=== PATIENT | female | born 1975 | race Caucasian/White ===

== ENCOUNTER 2018-04-26 09:27 | Outpatient (CLI) | payer BC, SELFPAY ==
[2018-04-26] MEDS: Bupivacaine 0.5% Pres-Free 30 ML VIAL IJ (14:09)
[2018-04-26] MEDS: Omnipaque 300 MG/ML 10 ML BTL IJ (14:10)
[2018-04-26] MEDS: methylPREDNISolone ACETATE 80 MG/ML VIAL IM (14:10)
--- NOTE | 2018-04-26 14:11 | DI.RAD_ITS ---
SYMPTOMS/DIAGNOSIS: PARTIAL ARTICULAR ROTATOR CUFF TEAR RT, M75.101 RIGHT SHOULDER INJECTION: Fluoroscopy Time: 13.6 sec A frontal image of the shoulder obtained with the C-arm reveals a needle positioned over the shoulder joint in connection with a joint injection. Please see Dr. Denise's procedure report for further information.
== END 2018-04-26 09:47 ==
PROVIDERS: PCP Nurse Practitioner Family; Visit Provider Student in an Organized Health Care Education/Training Program
DX: M75.101 Unspecified rotator cuff tear or rupture of right shoulder, not specified as traumatic (principal)
CPT/HCPCS: 20610; 77002; J1040

== ENCOUNTER 2018-07-01 09:15 | Outpatient (CLI) | payer BC, SELFPAY ==
[2018-07-01 10:39] LABS: Anion Gap 8.2 mmol/L (3-11); BUN 12 mg/dL (7-18); CO2 27.8 mmol/L (21.0-32.0); CREATININE 0.84 mg/dL (0.55-1.02); Calcium 8.8 mg/dL (8.5-10.1); Chloride 106 mmol/L (98-107); FREE T4 0.85 ng/dL (0.76-1.46); Glucose 89 mg/dL (70-100); Potassium 4.5 mmol/L (3.5-5.1); Sodium 142 mmol/L (136-145); TSH 4.78 uIU/mL (0.358-3.74)
[2018-07-02 09:13] LABS: Vitamin D 25 Total 25.9 ng/ml (30-100)
== END 2018-07-01 09:35 ==
PROVIDERS: PCP Nurse Practitioner Family; Visit Provider Nurse Practitioner Family
DX: G47.33 Obstructive sleep apnea (adult) (pediatric) (principal); M54.5 Low back pain; E55.9 Vitamin D deficiency, unspecified
CPT/HCPCS: 36415; 80048; 82306; 84439; 84443

== ENCOUNTER 2018-09-07 00:48 | Outpatient (CLI) | payer BC, SELFPAY ==
--- NOTE | 2018-09-07 16:15 | DI.MAMMO_ITS ---
SYMPTOM/DIAGNOSIS: SCREENING, Z12.31, BASELINE MAMMOGRAMS: Mammograms were interpreted according to the usual protocol including computer analysis with CAD system, tomosynthesis and C view imaging. There are no priors for comparison. Breast density, category A. No suspicious masses or microcalcifications are seen. There is a notched, well circumscribed nodule in the upper outer quadrant of the right breast, most consistent with an intraparenchymal lymph node. The skin and axilla are unremarkable. IMPRESSION: No evidence for malignancy. Yearly mammography is recommended. Category 1. MQSA ASSESSMENT OF FINDINGS: Negative. Category 1. Patient will receive a letter notifying them of these results. BI-RAD category A. The breasts are almost entirely fatty.
== END 2018-09-07 01:08 ==
PROVIDERS: PCP Nurse Practitioner Family; Visit Provider Nurse Practitioner Family
DX: Z12.31 Encounter for screening mammogram for malignant neoplasm of breast (principal)
CPT/HCPCS: 77063; 77067

== ENCOUNTER 2018-09-14 07:14 | Outpatient (CLI) | payer BC, SELFPAY ==
[2018-09-14 08:05] LABS: Abs Immature Grans 0.01 k/cumm (0.0-0.09); Absolute Basophil Count 0.03 k/cumm (0.0-0.2); Absolute Eosinophil Count 0.15 k/cumm (0.0-0.7); Absolute Lymphocyte Count 1.51 k/cumm (1.2-3.4); Absolute Monocyte Count 0.63 k/cumm (0.11-0.7); Absolute Neutrophil Count 4.39 k/cumm (1.2-6.7); Basophils % 0.4; Eosinophils % 2.2; HCT 37.6 % (36.0-46.0); HGB 11.8 g/dL (12.0-15.5); Immature Grans % 0.1; Lymphocytes % 22.5; Mean Corp. HGB Concentration 31.4 g/dL (32.0-36.0); Mean Corpuscular Hemoglobin 30.4 pg (27.0-33.0); Mean Corpuscular Volume 96.9 fL (80-95); Mean Platelet Volume 11.6 fL (8.0-11.0); Monocytes % 9.4; Neutrophils % 65.4; Platelet Count 302 x1000/uL (130-400); RBC 3.88 m/cumm (4.00-5.20); RBC Distribution Width 13.6 % (11.7-14.6); White Blood Cell Count 6.72 k/cumm (4.4-10.8)
[2018-09-14 09:15] LABS: Cholesterol 226 mg/dL (50-200); HDL Cholesterol 49 mg/dL (40-60); LDL CHOLESTEROL 146 mg/dL (<100); TSH 4.59 uIU/mL (0.358-3.74); Triglyceride 130 mg/dL (30-150)
[2018-09-17 06:00] LABS: Vitamin D 25 Total 25.4 ng/ml (30-100)
== END 2018-09-14 07:34 ==
PROVIDERS: PCP Nurse Practitioner Family; Visit Provider Nurse Practitioner Family
DX: E55.9 Vitamin D deficiency, unspecified (principal); E78.5 Hyperlipidemia, unspecified; G47.33 Obstructive sleep apnea (adult) (pediatric); R79.89 Other specified abnormal findings of blood chemistry
CPT/HCPCS: 36415; 80061; 82306; 83721; 84439; 84443; 85025

== ENCOUNTER → 2018-10-09 03:02 | Outpatient (CLI) | payer BC, SELFPAY ==
--- NOTE | 2018-10-15 12:20 | HOLTER_ITS ---
DATE OF DICTATION: October 15, 2018 HOLTER MONITOR REPORT 48-HOUR STUDY Baseline rhythm sinus. Rare single PAC. Two bursts of SVT, longest 14-beat duration, fastest 163 bpm. Very frequent single PVC, 8025 total, 3.9% of total beat. Nocturnal heart rates as low as 45-50 bpm, sinus bradycardia. SYMPTOMS: Palpitations noted twice during sinus rhythm 84, 86 bpm. Palpitations noted once during sinus rhythm single PVC 71 bpm. Average heart rate 70 bpm.
== END ==
PROVIDERS: PCP Nurse Practitioner Family; Visit Provider Nurse Practitioner Family
DX: R00.2 Palpitations (principal); R00.1 Bradycardia, unspecified; I49.3 Ventricular premature depolarization; I47.1 Supraventricular tachycardia
CPT/HCPCS: 93225

== ENCOUNTER → 2018-10-10 02:09 | Outpatient (CLI) | payer BC, SELFPAY ==
--- NOTE | 2018-10-10 16:00 | SATEXT_ITS ---
Assessment: Ms. Velazquez presents for nutritional counseling for weight management nutrition therapy in preparation for bariatric surgery at [facility]. She describes a long history of trying various weight loss programs and losing weight and gaining it back. She verbalizes a high motivation to make a lifestyle commitment to the bariatric program. She is 71 and 368.6 lbs. Her dietary recall shows that she wakes up at 5 am and has coffee with creamer. She has left overs from the night before at 9 am. She has cheese and crackers at 12 pm and then for dinner she has a typical dinner of protein, vegetable and starch. She reports that she drinks water but not enough. She drinks mostly diet soda if she has soda. She prefers vegetables over fruits. She reports that she has cut her intake of sweets down to three times per week. Her physical activity at this time consists of her activities of daily life. She works 60 hours per week. Nutritional Diagnosis: Class 3 obesity related to a history of excess energy intake and physical inactivity as evidenced by a BMI of 52.3 kg/m2. Intervention: We discussed the importance of making some action plans towards her overarching goal of losing weight and being a part of the bariatric program. At this visit, Ms. Velazquez made action plans around increasing her fruit intake and increasing her water intake. Provided written materials with some suggestions and tips. Monitoring and Evaluation: 1. Will monitor her weight and PO intake monthly as well as her progress on her action plans. 2. Will evaluate her nutrition care plan each month and adjust as needed. Thank you for the referral. Total time spent face to face: 43 minutes
--- NOTE | 2018-10-11 13:04 | W.NUTCONSULT ---
Date of service: 10/11/18 Time of Service: 13:04
== END ==
PROVIDERS: PCP Nurse Practitioner Family; Visit Provider Dietitian, Registered
DX: E66.8 Other obesity (principal); Z68.43 Body mass index [BMI] 50.0-59.9, adult; Z71.3 Dietary counseling and surveillance
CPT/HCPCS: 97802

== ENCOUNTER → 2018-10-11 16:57 | Outpatient (CLI) | payer BC, SELFPAY | PROVIDERS: PCP Nurse Practitioner Family; Visit Provider Nurse Practitioner Family | DX: R00.2 Palpitations (principal); I49.3 Ventricular premature depolarization; I47.1 Supraventricular tachycardia; R00.1 Bradycardia, unspecified | CPT/HCPCS: 93226 ==

== ENCOUNTER 2018-11-12 02:59 | Outpatient (CLI) | payer BC, SELFPAY ==
--- NOTE | 2018-11-12 16:30 | NS.NUTBLAN_ITS ---
Ms. Velazquez returns for follow up weight management nutrition therapy in preparation for bariatric surgery. She has increased her water intake. She has decreased her overall portion sizes and increased her fruit intake. Her physical activity has increased as well, as she is climbing ladders frequently working on her home. She continues to demonstrate a high motivation to commit to a lifestyle of weight management. Her dietary recall shows that she has yogurt or oatmeal for breakfast. She has a salad for lunch. She snacks on a fruit and for dinner she eats vegetable and a protein. She is reducing her beef intake. Her action plan is to continue with the same as she has been doing and to increase her water intake to 12 ounces every waking hour as possible. She will also weigh and measure her foods until she gets a good idea of exact portions. She is 71 and 367.2 lbs. Her BMI is 52 kg/m2. Will monitor her PO intake, weight, and physical activity each month. Will evaluate her nutrition care plan ongoing and adjust as needed. Total time spent with patient face to face was 20 minutes.
== END 2018-11-12 03:19 ==
PROVIDERS: PCP Nurse Practitioner Family; Visit Provider Dietitian, Registered
DX: E66.9 Obesity, unspecified (principal); Z68.43 Body mass index [BMI] 50.0-59.9, adult; Z71.3 Dietary counseling and surveillance
CPT/HCPCS: 97803

== ENCOUNTER 2018-12-12 08:24 | Outpatient (CLI) | payer BC, SELFPAY ==
--- NOTE | 2018-12-24 19:03 | W.NUTRFU ---
Date of service: 12/12/18 Time of Service: 16:00 Nutritional Follow up NOTE: Ms. Velazquez returns for follow up weight management nutrition therapy in preparation for bariatric surgery. She continues to demonstrate a high motivation to adopt a lifestyle of weight management and complete all the compononents of the program. She stopped drinking coffee and soda and she has increased her water intake. Her physical activity has increased with increased work on her new home. She plans to walk for 20 to 30 minutes daily now too. She is 71 Her weight is 373 lbs. Her BMI is 53.5 kg/m2 Will monitor her PO intake, her weight, and her physical activity each month. Will evaluate her nutrition care plan ongoing and adjust as needed. Time Spent in Nutritional Counseling and Treatment: 15 minutes
== END 2018-12-12 08:44 ==
PROVIDERS: PCP Nurse Practitioner Family; Visit Provider Dietitian, Registered
DX: E66.8 Other obesity (principal); Z68.43 Body mass index [BMI] 50.0-59.9, adult; Z71.3 Dietary counseling and surveillance
CPT/HCPCS: 97803

== ENCOUNTER 2019-02-01 08:28 | Outpatient (CLI) | payer BC, SELFPAY ==
--- NOTE | 2019-02-01 09:05 | MERGE_ITS ---
*[facility]* *[facility]* [address] [place] [address] Date of study: 02/01/2019 Transthoracic Echocardiography M-mode, complete 2D, complete spectral Doppler, and color Doppler *STUDY CONCLUSIONS* Summary: 1. Left ventricle: The cavity size was at the upper limits of normal. Wall thickness was increased in a pattern of mild LVH. Systolic function was normal. The estimated ejection fraction was 55-60%. Wall motion was normal; there were no regional wall motion abnormalities. 2. Right ventricle: The cavity size was normal. Systolic function was normal. 3. Mitral valve: Mildly calcified annulus. Mildly thickened leaflets. There was mild regurgitation. 4. Aortic valve: Bicuspid (fusion of left and right coronary cusps); mildly thickened leaflets. There was mild regurgitation. 5. Aortic root: The aortic root was mildly dilated (39 mm). 6. Ascending aorta: The ascending aorta was mildly dilated (42 mm). 7. Inferior vena cava: The vessel was patent and normal in size. The respirophasic diameter changes were in the normal range (greater than or equal to 50%), consistent with normal central venous pressure. *PATIENT PRESENTATION* Height: 177.8cm (70in ) S/D Pressure: 102 / 61 Weight: 165.6kg (364.2lb ) BSA: 2.95m^2 Test start time: 09:15 AM. Test stop time: 10:15 AM. PERFORMING Unknown PERFORMING [facility] ETL ARCHITECT RT Rose Mary Ricketts)(CT), [facility] ORDERING Corrine España REFERRING Adjovu, Corrine *PROCEDURE DATA* Procedure information: The patient was identified by two identifiers. This study was interpreted by [facility]. Pertinent images and digital data are archived for permanent storage and are available for subsequent review. No prior study was available for comparison. Study status: Routine. Transthoracic echocardiography. M-mode, complete 2D, complete spectral Doppler, and color Doppler. A Transthoracic Echocardiogram was performed. Scanning was performed from the parasternal, apical, subcostal, and suprasternal notch acoustic windows. Images were obtained using an [id number] cardiac ultrasound machine. Image quality was adequate. Study completion: The patient tolerated the procedure well. There were no complications. *CARDIAC ANATOMY* Left ventricle: The cavity size was at the upper limits of normal. Wall thickness was increased in a pattern of mild LVH. Systolic function was normal. The estimated ejection fraction was 55-60%. Wall motion was normal; there were no regional wall motion abnormalities. Findings consistent with diastolic dysfunction. There was no evidence of elevated ventricular filling pressure by Doppler parameters. Aortic valve: Bicuspid (fusion of left and right coronary cusps); mildly thickened leaflets. Mobility was not restricted. Doppler: Transvalvular velocity was within the normal range. There was no stenosis. There was mild regurgitation. VTI ratio of LVOT to aortic valve: 0.5. Valve area (VTI): 2cm^2. Indexed valve area (VTI): 0.7cm^2/m^2. Peak velocity ratio of LVOT to aortic valve: 0.49. Valve area (Vmax): 2cm^2. Indexed valve area (Vmax): 0.7cm^2/m^2. Mean velocity ratio of LVOT to aortic valve: 0.54. Valve area (Vmean): 2.2cm^2. Indexed valve area (Vmean): 0.7cm^2/m^2. Mean gradient (S): 10.4mm Hg. Peak gradient (S): 18mm Hg. Aorta: Aortic root: The aortic root was mildly dilated (39 mm). Ascending aorta: The ascending aorta was mildly dilated (42 mm). Mitral valve: Mildly calcified annulus. Mildly thickened leaflets. Mobility was not restricted. Doppler: Transvalvular velocity was within the normal range. There was no evidence for stenosis. There was mild regurgitation. Valve area by pressure half-time: 3.8cm^2. Indexed valve area by pressure half-time: 1.3cm^2/m^2. Peak gradient (D): 5.5mm Hg. Left atrium: The atrium was at the upper limits of normal in size. Right ventricle: The cavity size was normal. Systolic function was normal. Pulmonic valve: The pulmonary valve appears to be grossly normal. Doppler: Transvalvular velocity was within the normal range. There was no evidence for stenosis. There was trivial regurgitation. Tricuspid valve: Structurally normal valve. Doppler: Transvalvular velocity was within the normal range. There was no evidence for stenosis. There was trivial regurgitation. Pulmonary artery: The main pulmonary artery was normal-sized. Pulmonary systolic pressure was within the normal range, in the range of 30mm Hg to 35mm Hg. Right atrium: The atrium was normal in size. Pericardium: There was no significant pericardial effusion. Systemic veins: Inferior vena cava: Well visualized. The vessel was patent and normal in size. The respirophasic diameter changes were in the normal range (greater than or equal to 50%), consistent with normal central venous pressure. Baseline ECG: Bradycardia. Measurements Left ventricle Value Reference LV ID, ED, PLAX 5.7 cm 3.5 - 6.0 LV ID, ES, PLAX 4.0 cm 2.1 - 4.0 LV PW thickness, ED, PLAX 1.3 cm LV end-diastolic volume, 1-p A2C 157 ml LV ejection fraction, 1-p A2C 59 % LV end-diastolic volume, 1-p A4C 144 ml LV ejection fraction, 1-p A4C 55 % LV e', lateral 0.096 m/sec LV E/e', lateral 12 LV e', medial 0.066 m/sec LV E/e', medial 18 LV e', average 0.081 m/sec LV E/e', average 15 Ventricular septum Value Reference IVS thickness, ED, PLAX 1.3 cm LVOT Value Reference LVOT ID, A-P 2.3 cm LVOT area 4 cm^2 LVOT peak velocity, S 1.03 m/sec LVOT mean velocity, S 0.84 m/sec LVOT VTI, S 26.8 cm LVOT peak gradient, S 4.3 mm Hg LVOT mean gradient, S 2.9 mm Hg Stroke volume (SV), LVOT DP 108 ml Stroke index (SV/bsa), LVOT DP 37 ml/m^2 Aortic valve Value Reference Aortic valve peak velocity, S 2.1 m/sec Aortic valve mean velocity, S 1.5 m/sec Aortic valve VTI, S 54.0 cm Aortic mean gradient, S 10.4 mm Hg Aortic peak gradient, S 18 mm Hg VTI ratio, LVOT/AV 0.5 Aortic valve area, VTI 2 cm^2 Velocity ratio, peak, LVOT/AV 0.49 Aortic valve area, peak velocity 2 cm^2 Velocity ratio, mean, LVOT/AV 0.54 Aortic valve area, mean velocity 2.2 cm^2 Aortic valve area/bsa, mean velocity 0.7 cm^2/m^2 Aorta Value Reference Aortic root ID, ED 3.9 cm Ascending aorta ID, A-P, S 4.2 cm RVOT Value Reference RVOT VTI, S 22.6 cm Left atrium Value Reference LA ID, A-P, ES 3.8 cm LA ID/bsa, A-P 1.3 cm/m^2 <=2.2 LA volume/bsa, ES, 1-p A4C 27 ml/m^2 LA volume, ES, 2-p 70 ml LA volume/bsa, ES, 2-p 24 ml/m^2 LA/aortic root ratio 0.98 Mitral valve Value Reference Mitral E-wave peak velocity 1.18 m/sec Mitral A-wave peak velocity 0.9 m/sec Mitral deceleration time 201 ms 150 - 230 Mitral pressure half-time 58 ms Mitral peak gradient, D 5.5 mm Hg Mitral E/A ratio, peak 1.31 Mitral valve area, PHT, DP 3.8 cm^2 Pulmonary veins Value Reference Pulmonary vein peak velocity, S 0.82 m/sec Pulmonary vein peak velocity, D 0.45 m/sec Pulmonary vein velocity ratio, peak, 1.81 S/D Pulmonary vein A-wave reversal peak 0.31 m/sec velocity Pulmonary vein A-wave reversal 141 ms duration Tricuspid valve Value Reference Tricuspid regurg peak velocity 2.8 m/sec Tricuspid peak RV-RA gradient 30.3 mm Hg Right atrium Value Reference RA area, ES, A4C 19.4 cm^2 8.3 - 19.5 Legend: (L) and (H) anahy values outside specified reference range. I have personally reviewed the images and have reviewed and edited the reported findings. Electronically signed by Anjel Lamar 02/01/2019 11:20
[2019-02-01 11:05] LABS: HCT 36.8 % (36.0-46.0); HGB 11.8 g/dL (12.0-15.5); Mean Corp. HGB Concentration 32.1 g/dL (32.0-36.0); Mean Corpuscular Hemoglobin 30.8 pg (27.0-33.0); Mean Corpuscular Volume 96.1 fL (80-95); Mean Platelet Volume 11.6 fL (8.0-11.0); Platelet Count 285 x1000/uL (130-400); RBC 3.83 m/cumm (4.00-5.20); RBC Distribution Width 13.8 % (11.7-14.6)
[2019-02-01 13:24] LABS: TSH 3.17 uIU/mL (0.358-3.74)
[2019-02-01 13:44] LABS: FREE T4 0.95 ng/dL (0.76-1.46)
[2019-02-04 07:12] LABS: Vitamin D 25 Total 23.9 ng/ml (30-100)
[2019-02-04 10:09] LABS: Rheumatoid Factor 12 IU/mL (<12.5)
[2019-02-04 11:13] LABS: Thyroglobulin Antibody 36 U/mL (<61); Thyroperoxidase Antibody 393 U/mL (<61)
[2019-02-04 12:13] LABS: Lyme Ab w Rflx to Lyme Confirm Negative
[2019-02-05 00:19] LABS: Anaplasma phagocytophilum Negative (Negative); B. miyamotoi PCR Negative (Negative); Babesia divergens/MO-1 Negative (Negative); Babesia duncani Negative (Negative); Babesia microti Negative (Negative); Ehrlichia chaffeensis Negative (Negative); Ehrlichia ewingii/canis Negative (Negative); Ehrlichia muris eauclairensis Negative (Negative)
== END 2019-02-01 08:48 ==
PROVIDERS: PCP Nurse Practitioner Family; Visit Provider Nurse Practitioner Family
DX: I49.3 Ventricular premature depolarization (principal); E03.9 Hypothyroidism, unspecified; E55.9 Vitamin D deficiency, unspecified; M25.50 Pain in unspecified joint; I34.0 Nonrheumatic mitral (valve) insufficiency; I35.8 Other nonrheumatic aortic valve disorders
CPT/HCPCS: 36415; 82306; 85027; 86376; 87798; 84439; 84443; 86431; 86618; 93306

== ENCOUNTER → 2019-08-21 07:04 | Outpatient (CLI) | payer OTHER, SELFPAY ==
[2019-08-21 08:21] LABS: Hemoglobin A1C 5.7 % (3.8-5.6)
[2019-08-21 08:46] LABS: Anion Gap 9.2 mmol/L (3-11); BUN 13 mg/dL (7-18); CO2 26.8 mmol/L (21.0-32.0); CREATININE 0.85 mg/dL (0.55-1.02); Calcium 9.1 mg/dL (8.5-10.1); Calculated LDL 133 mg/dL; Chloride 104 mmol/L (98-107); Cholesterol 198 mg/dL (<200); Glucose 83 mg/dL (74-106); HDL Cholesterol 45 mg/dL (40-60); Potassium 4.4 mmol/L (3.5-5.1); Sodium 140 mmol/L (136-145); Triglyceride 104 mg/dL (<150)
[2019-08-21 09:36] LABS: Vitamin D 25 Total 26.6 ng/ml (30-100)
== END ==
PROVIDERS: PCP Nurse Practitioner Family; Visit Provider Nurse Practitioner Family
DX: E78.5 Hyperlipidemia, unspecified (principal); E55.9 Vitamin D deficiency, unspecified
CPT/HCPCS: 36415; 80048; 80061; 82306; 83036

== ENCOUNTER 2019-10-02 01:24 | Outpatient (CLI) | payer OTHER, SELFPAY ==
--- NOTE | 2019-10-02 15:35 | DI.MAMMO_ITS ---
EXAM: MG MAMMO SCREENING CLINICAL HISTORY: screening, Z12.39 TECHNIQUE: Bilateral full field digital CC and MLO mammographic images were obtained with 3D tomosyn thesis and utilizing computer aided detection (CAD). COMPARISON: Available for comparison. FINDINGS: Masses/Architectural Distortion: None seen. Microcalcifications: No suspicious pleomorphic-type are seen. Skin Thickening/Nipple Retraction: None. IMPRESSION: 1. No significant interval change with no specific features of malignancy noted. 2. Unless there is more urgent need, screening mammography is recommended, as per [place] [employer] guidelines. ACR BI-RAD Category- 1 Negative Breast Density - Category A - Almost entirely fatty A negative radiographic report should not delay biopsy if a dominant or clinically suspicious mass is present. Up to ten percent of cancers are not identified on mammography. A negative report may reinforce clinical impression. Adenosis and dense breasts may obscure an underlying neoplasm. False positive reports average 6 to 10%. Patient will receive a letter notifying them of these results.
== END 2019-10-02 01:44 ==
PROVIDERS: PCP Nurse Practitioner Family; Visit Provider Nurse Practitioner Family
DX: Z12.31 Encounter for screening mammogram for malignant neoplasm of breast (principal)
CPT/HCPCS: 77063; 77067

== ENCOUNTER → 2019-10-11 14:44 | Outpatient (REF) | payer OTHER, SELFPAY ==
--- NOTE | 2019-10-11 13:45 | SKI_PTH ---
PATIENT: Jane Velazquez LOC: [facility] U#:[id number] AGE/SX: 49/F ROOM: RE10/11/[address]: Jyoti Espinosa MD : 1975 BED: DIS: SPEC #: [id number] RECD: 10/11/19 16:29 STATUS: NAOMIE IQBAL #: [id number] JAVY: 10/11/19 13:[address]: Jyoti Espinosa DEPT: Surgical Specimen RECD BY: Kate Diaz ENTERED: 10/11/19 16:29 SP TYPE: GERALDINE ROSARIO DR: SHRUTHI Hagan Tissues: 1 - SKIN BIOPSY(SHAVE/PUNCH) Procedures: SKIN LEVEL 4 Comments: [id number]
== END ==
LOC: LBN 14:44
PROVIDERS: PCP Nurse Practitioner Family; Visit Provider Surgery
DX: B07.8 Other viral warts (principal); L90.5 Scar conditions and fibrosis of skin
CPT/HCPCS: 88305

== ENCOUNTER 2020-06-29 21:21 | Outpatient (REF) | payer OTHER, SELFPAY ==
[2020-06-29 21:10] LABS: HCT 38.9 % (36.0-46.0); HGB 12.7 g/dL (11.2-15.7); MCH 31.2 pg (27.0-33.0); MCHC 32.6 % (32.0-36.0); MCV 95.6 fL (80-95); MPV 11.8 fL (8.0-11.0); Platelet Count 333 10^3/uL (130-400); RBC 4.07 10^6/uL (3.93-5.22); RDW 13.2 % (11.7-14.6); RDW-SD 46.7 fL
[2020-06-29 21:47] LABS: TSH 3.63 uIU/mL (0.36-3.74)
[2020-07-02 04:46] LABS: Vitamin D 25 Total 25.9 ng/ml (30-100)
== END 2020-06-29 21:41 ==
LOC: NCHCN 21:21
PROVIDERS: PCP Nurse Practitioner Family; Visit Provider Nurse Practitioner Family
DX: N93.9 Abnormal uterine and vaginal bleeding, unspecified (principal); E55.9 Vitamin D deficiency, unspecified
CPT/HCPCS: 82306; 85027; 84439; 84443

== ENCOUNTER 2020-07-03 04:27 | Outpatient (CLI) | payer OTHER, SELFPAY ==
--- NOTE | 2020-07-03 06:30 | DI.US_ITS ---
EXAM: US PELVIS TRANSVAGINAL CLINICAL HISTORY: Assess for uterine fibroids, ovarian cysts,ABNL UTERINE BLEEDING,N93.9 TECHNIQUE: Transabdominal and transvaginal imaging was performed using standard protocol. COMPARISON: CT ABD PELVIS WITH CONTRAST from 08/31/2016 FINDINGS: KIDNEYS: Kidneys are symmetric in size. No evidence of renal calculi. No evidence of hydronephrosis. No renal mass or cyst identified. Transabdominal images are limited by lack of bladder distension. UTERUS: Anteverted. 7.5 x 4.5 x 7.6 cm Endometrium: Homogeneous, 4 millimeters in thickness. Myometrium: Mildly heterogeneous. 8 millimeter myometrial fibroid near the fundus. Cervix: Nabothian cysts. OVARIES: Right: Cyst or mass: None. Left: Cyst or mass: None. DOPPLER: Color: Symmetric and uniform flow to both ovaries. No hyperemia. Duplex: Normal ovarian arterial waveforms visualized. CUL-DE-SAC: Free fluid: None. IMPRESSION: 1. Normal-sized uterus. Small fundal fibroid. 2. Unremarkable bilateral ovaries. DATA REPOSITORY:
== END 2020-07-03 04:47 ==
PROVIDERS: PCP Nurse Practitioner Family; Visit Provider Nurse Practitioner Family
DX: N93.9 Abnormal uterine and vaginal bleeding, unspecified (principal)
CPT/HCPCS: 76830; 76856

== ENCOUNTER → 2020-07-08 14:40 | Outpatient (REF) | payer OTHER, SELFPAY ==
--- NOTE | 2020-07-08 13:50 | ENDOMET_PTH ---
PATIENT: Jane Velazquez LOC: N U#:[id number] AGE/SX: 49/F ROOM: RE07/08/[address]: Agueda Barraza DO : 1975 BED: DIS: SPEC #: [id number] RECD: 07/08/20 16:38 STATUS: SOUT REQ #: [id number] JAVY: 07/08/20 13:[address]: Agueda Barraza DEPT: Surgical Specimen RECD BY: Kate Diaz ENTERED: 07/08/20 16:39 SP TYPE: Endomet OTHR DR: SHRUTHI Hagan Tissues: 1 - ENDOMETRIUM BX/TERRENCE Procedures: GROSS AND MICRO LEVEL 4 Comments: [id number]
== END ==
LOC: LBN 14:40
PROVIDERS: PCP Nurse Practitioner Family; Visit Provider Obstetrics & Gynecology
DX: N85.01 Benign endometrial hyperplasia (principal); N93.8 Other specified abnormal uterine and vaginal bleeding
CPT/HCPCS: 88305

== ENCOUNTER 2020-07-09 05:09 | Outpatient (CLI) | payer OTHER, SELFPAY ==
[2020-07-10 17:34] LABS: Prolactin 15.6 ng/mL (See Table)
== END 2020-07-09 05:29 ==
PROVIDERS: PCP Nurse Practitioner Family; Visit Provider Obstetrics & Gynecology
DX: N93.8 Other specified abnormal uterine and vaginal bleeding (principal)
CPT/HCPCS: 36415; 83001; 84146

== ENCOUNTER 2020-09-09 03:01 | Outpatient (CLI) | payer OTHER, SELFPAY ==
[2020-09-09 07:54] LABS: Hemoglobin A1C 5.3 % (<5.7)
[2020-09-10 04:49] LABS: Vitamin D 25 Total 32.1 ng/ml (30-100)
== END 2020-09-09 03:02 | disposition home or self-care (01) ==
LOC: LBO 03:02
PROVIDERS: PCP Nurse Practitioner Family; Visit Provider Nurse Practitioner Family
DX: R73.03 Prediabetes (principal); E55.9 Vitamin D deficiency, unspecified
CPT/HCPCS: 36415; 82306; 83036

== ENCOUNTER 2020-10-01 21:01 | Outpatient (REF) | payer OTHER, SELFPAY ==
[2020-10-01 21:16] LABS: Anion Gap 9.6 mmol/L (3-11); BUN 17 mg/dL (7-18); CO2 27.4 mmol/L (21.0-32.0); CREATININE 0.9 mg/dL (0.55-1.02); Calcium 9.6 mg/dL (8.5-10.1); Chloride 105 mmol/L (98-107); Glucose 99 mg/dL (74-106); Potassium 4.3 mmol/L (3.5-5.1); Sodium 142 mmol/L (136-145)
== END 2020-10-01 21:02 | disposition home or self-care (01) ==
LOC: NCHCN 21:01
PROVIDERS: PCP Nurse Practitioner Family; Visit Provider Nurse Practitioner Family
DX: I10 Essential (primary) hypertension (principal)
CPT/HCPCS: 80048

== ENCOUNTER 2020-10-05 01:24 | Outpatient (CLI) | payer OTHER, SELFPAY ==
--- NOTE | 2020-10-05 16:17 | DI.MAMMO_ITS ---
EXAM: MG MAMMO SCREENING CLINICAL HISTORY: screening,z12.39 TECHNIQUE: Bilateral full field digital CC and MLO mammographic images were obtained with 3D tomosyn thesis and utilizing computer aided detection (CAD). COMPARISON: Available for comparison. FINDINGS: Masses/Architectural Distortion: None seen. Microcalcifications: No suspicious pleomorphic-type are seen. Skin Thickening/Nipple Retraction: None. IMPRESSION: 1. No significant interval change with no specific features of malignancy noted. 2. Unless there is more urgent need, screening mammography is recommended, as per [employer] guidelines. BI-RADS Category 1 - Negative Breast Density - Category A - Almost entirely fatty Breast density category C or D implies that the patient has dense breast tissue. Dense breast tissue is very common and is not abnormal but dense breast tissue can make it harder to find cancer on a ma mmogram. Also, dense breast tissue may increase their breast cancer risk. This information about the result of the mammogram report was provided to the patient to raise their awareness. Use this report when you speak with the patient about their risks for breast cancer, which includes their family hist ory. At that time, you may recommend for more screening tests (Ultrasound or MRI) as they might be us eful based on their risk. A negative radiographic report should not delay biopsy if a dominant or clinically suspicious mass is present. Up to ten percent of cancers are not identified on mammography. A negative report may reinforce clinical impression. Adenosis and dense breasts may obscure an underlying neoplasm. False positive reports average 6 to 10%. Patient will receive a letter notifying them of these results.
== END 2020-10-05 01:44 ==
PROVIDERS: PCP Nurse Practitioner Family; Visit Provider Nurse Practitioner Family
DX: Z12.31 Encounter for screening mammogram for malignant neoplasm of breast (principal)
CPT/HCPCS: 77063; 77067

== ENCOUNTER 2020-11-12 02:51 | Outpatient (CLI) | payer OTHER, SELFPAY ==
[2020-11-13 13:28] LABS: COVID-19 RT-PCR UVMMC Result Negative (Negative)
== END 2020-11-12 02:52 | disposition home or self-care (01) ==
LOC: LBO 02:52
PROVIDERS: PCP Nurse Practitioner Family; Visit Provider Nurse Practitioner Family
DX: Z20.822 Contact with and (suspected) exposure to COVID-19 (principal)
CPT/HCPCS: U0003

== ENCOUNTER 2020-11-17 02:14 | Outpatient (CLI) | payer OTHER, SELFPAY ==
[2020-11-18 11:19] LABS: COVID-19 RT-PCR UVMMC Result Negative (Negative)
== END 2020-11-17 02:15 | disposition home or self-care (01) ==
LOC: LBO 02:14
PROVIDERS: PCP Nurse Practitioner Family; Visit Provider Nurse Practitioner Family
DX: Z20.822 Contact with and (suspected) exposure to COVID-19 (principal)
CPT/HCPCS: U0003

== ENCOUNTER 2021-04-06 05:36 | Outpatient (CLI) | payer OTHER, SELFPAY ==
--- NOTE | 2021-04-06 14:00 | NS.NUTBLAN_ITS ---
Jane was referred to Medical Nutrition Therapy in preparation for weight loss surgery at [facility]. 5'10 389 lbs, BMI 55.8. 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 She works 5-6 days per week. She sleeps 6 hours per night and typically gets up around 2 am. Her first meal is 8 am which consists of crackers, has breakfast at 9 am, typically a sandwich and has a snack again around noon. Dinner is at home around 5 pm- homemade- protein, veg and a starch. She reports being active in the shop but does not follow any routine exercise. She does not eat fast food or over eat. Reports steady weight gain since childhood. Session today focused on how to adjust Jane's meals to include more lean protein and rely less heavily on simple carbs. Provided meal plans and encouraged logging meals on a phone cady and to follow a [id number] calories, 80- 100 g carbs, 80-100 g protein diet with 2400 ml water intake. Goal is for 20-30 lbs weight loss prior to surgery. Follow up meeting scheduled for 05/04 at 3:30 pm.
== END 2021-04-06 05:37 | disposition home or self-care (01) ==
PROVIDERS: PCP Nurse Practitioner Family; Visit Provider Dietitian, Registered
DX: E66.8 Other obesity (principal); Z68.43 Body mass index [BMI] 50.0-59.9, adult; Z71.3 Dietary counseling and surveillance
CPT/HCPCS: 97802

== ENCOUNTER 2021-04-19 16:05 | Outpatient (REF) | payer OTHER, SELFPAY ==
--- NOTE | 2021-04-19 15:20 | PAPFT_PTH ---
PATIENT: Jane Velazquez LOC: [facility] U#:[id number] AGE/SX: 45/F ROOM: RE04/19/[address]: Agueda Barraza DO : 1975 BED: DIS: 04/19/2021 SPEC #: [id number] RECD: 04/19/21 17:01 STATUS: NAOMIE RELuz Maria #: [id number] JAVY: 04/19/21 15:[address]: Agueda Barraza [facility]PT[facility] Cytology RECD BY: Kate Diaz ENTERED: 04/19/21 17:01 SP TYPE: PAPFT OTHR DR: Corrine España, CAKE [employer] Tissues: 1 - CX/ENDOCX FOR PAP SMEARS Procedures: PAP THIN PREP/UVM Screening HPV DNA PROBE Comments: [id number]
== END 2021-04-19 16:06 | disposition home or self-care (01) ==
LOC: LBN 16:05
PROVIDERS: PCP Nurse Practitioner Family; Visit Provider Obstetrics & Gynecology
DX: Z12.4 Encounter for screening for malignant neoplasm of cervix (principal); Z11.51 Encounter for screening for human papillomavirus (HPV)
CPT/HCPCS: 88142; 87624

== ENCOUNTER 2021-05-05 13:53 | Outpatient (CLI) | payer OTHER, SELFPAY ==
--- NOTE | 2021-05-04 13:00 | NS.NUTBLAN_ITS ---
Jane returns for pre-bariatric nutrition counseling. Wt: 380 lbs, down 9 lbs in 4 weeks. Jane has been logging her meals on a phone cady and has been able to decrease her carbohydrate intake to 80-100 g carbs daily. She has incorporated more lean protein, fruits and vegetables in her meal plan and states that she feels well, not hungry. Session today focused on how to increase variety in her meal plan to decrease boredom and reviewed how to pick wisely at restaurants. Encouraged increase in activity of 30 minutes daily when possible. Jane works 60-70 hours per week and typically does no exercise. She is going to start walking at her lunch hour and walk 30 min on weekends. Overall, Jane is doing a great job learning how to alter her meal plan, lose weight and feel full. Third and final nutrition session in preparation for bariatric surgery at [facility] scheduled for 06/01/21 at 3:30 pm.
== END 2021-05-05 13:54 | disposition home or self-care (01) ==
LOC: DS 13:56
PROVIDERS: PCP Nurse Practitioner Family; Visit Provider Dietitian, Registered
DX: E66.8 Other obesity (principal); Z71.3 Dietary counseling and surveillance
CPT/HCPCS: 97803

== ENCOUNTER 2021-06-01 02:41 | Outpatient (CLI) | payer OTHER, SELFPAY ==
--- NOTE | 2021-06-01 15:30 | NS.NUTBLAN_ITS ---
Assessment: Jane returns today for nutritional counseling as part of preparation for bariatric surgery. She is 5'10 and down to [address] scale. Her BMI is 53 kg/m2. Her weight is down 4.8% in 8 weeks. She states that she has started going to the gym 2 days per week. On weekends she works out for an hour at the gym. She has increased her protein at meals and she has reduced her carbohydrate intake to 60 g to 80 g/day. Jane stated that she is doing a trial now with various low sugar protein shakes to find one that she likes especially for post op. Nutrition Diagnosis: Class 3 obesity related to a history of excess energy intake and physical inactivity as evidenced by BMI of 53 kg/m2. Intervention: Acknowledged Jane's hard work and dedication to a lifestyle of weight management. Encouraged her to continue with what she has been doing. Jane demonstrates qualities that will help her be successful with weight loss surgery. Monitoring and Evaluation: Per [facility] at this point. Thank you for allowing me to participate in the care of your patient.
== END 2021-06-01 02:42 | disposition home or self-care (01) ==
PROVIDERS: PCP Nurse Practitioner Family; Visit Provider Dietitian, Registered
DX: E66.01 Morbid (severe) obesity due to excess calories (principal); Z68.43 Body mass index [BMI] 50.0-59.9, adult; Z71.3 Dietary counseling and surveillance
CPT/HCPCS: 97803

== ENCOUNTER 2021-10-26 00:52 | Outpatient (CLI) | payer BC, SELFPAY ==
--- NOTE | 2021-10-26 08:00 | DI.MAMMO_ITS ---
Exam(s) MAMMO SCREENING EXAM: MAMMO SCREENING CLINICAL HISTORY: screening, Z12.39 TECHNIQUE: Bilateral full field digital CC and MLO mammographic images were obtained with 3D tomosyn thesis and utilizing computer aided detection (CAD). COMPARISON: Available for comparison. FINDINGS: Masses/Architectural Distortion: None seen. Microcalcifications: No suspicious pleomorphic-type are seen. Skin Thickening/Nipple Retraction: None. IMPRESSION: 1. No significant interval change with no specific features of malignancy noted. 2. Unless there is more urgent need, screening mammography is recommended, as per [employer] guidelines. BI-RADS Category 1 - Negative Breast Density - Category A - Almost entirely fatty Breast density category C or D implies that the patient has dense breast tissue. Dense breast tissue is very common and is not abnormal but dense breast tissue can make it harder to find cancer on a ma mmogram. Also, dense breast tissue may increase their breast cancer risk. This information about the result of the mammogram report was provided to the patient to raise their awareness. Use this report when you speak with the patient about their risks for breast cancer, which includes their family hist ory. At that time, you may recommend for more screening tests (Ultrasound or MRI) as they might be us eful based on their risk. A negative radiographic report should not delay biopsy if a dominant or clinically suspicious mass is present. Up to ten percent of cancers are not identified on mammography. A negative report may reinforce clinical impression. Adenosis and dense breasts may obscure an underlying neoplasm. False positive reports average 6 to 10%. Patient will receive a letter notifying them of these results.
== END 2021-10-26 01:12 ==
PROVIDERS: PCP Nurse Practitioner Family; Visit Provider Nurse Practitioner Family
DX: Z12.31 Encounter for screening mammogram for malignant neoplasm of breast (principal)
CPT/HCPCS: 77063; 77067

== ENCOUNTER 2021-10-27 14:46 | Outpatient (REF) | payer BC, SELFPAY | END 2021-10-27 14:47 | disposition home or self-care (01) | LOC: LBN 14:46 | PROVIDERS: PCP Nurse Practitioner Family; Visit Provider Nurse Practitioner Family | DX: N76.0 Acute vaginitis (principal) | CPT/HCPCS: 87480; 87510; 87660 ==

== ENCOUNTER 2022-09-26 02:41 | Outpatient (CLI) | payer BC, SELFPAY ==
[2022-09-26 08:07] LABS: ALT 68 U/L (14-59); AST 40 U/L (15-37); Albumin 3.8 g/dL (3.4-5.0); Alkaline Phosphatase 121 U/L (46-116); BUN 12 mg/dL (7-18); Bilirubin, Total 0.6 mg/dL (0.2-1.0); CREATININE 0.9 mg/dL (0.55-1.02); Calcium 9.4 mg/dL (8.5-10.1); Calculated LDL 121 mg/dL (<100); Chloride 107 mmol/L (98-107); Cholesterol 195 mg/dL (<200); Estimated GFR 80.34 (mL/min/1.73m2); Glucose 106 mg/dL (74-106); HDL Cholesterol 64 mg/dL (40-60); Potassium 3.7 mmol/L (3.5-5.1); Sodium 143 mmol/L (136-145); Total Protein 7.8 g/dL (6.4-8.2); Triglyceride 52 mg/dL (<150)
== END 2022-09-26 02:42 | disposition home or self-care (01) ==
PROVIDERS: PCP Nurse Practitioner Family; Visit Provider Nurse Practitioner Family
DX: E78.5 Hyperlipidemia, unspecified (principal); Z98.84 Bariatric surgery status
CPT/HCPCS: 36415; 80053; 80061; 84443

== ENCOUNTER 2022-10-31 01:15 | Outpatient (CLI) | payer BC, SELFPAY ==
--- NOTE | 2022-10-31 08:30 | DI.MAMMO_ITS ---
Exam(s) MAMMO SCREENING EXAM: MAMMO SCREENING CLINICAL HISTORY: screening,Z12.39. TECHNIQUE: Bilateral full field digital CC and MLO mammographic images were obtained with 3D tomosyn thesis and utilizing computer aided detection (CAD). COMPARISON: Prior mammograms were reviewed. FINDINGS: There has been no significant change in the appearance and distribution of the fibroglandular tissue. There are no CAD designations. There are no new spiculated masses nor malignant appearing microcalcification groups. Benign-appearing lymph node in the right breast is unchanged from prior studies. There is no significant architectural distortion nor skin thickening-retraction. IMPRESSION: No radiographic evidence of malignancy. BI-RADS Category 1 - Negative Breast Density - Category A - Almost entirely fatty Breast density Category C or D implies that the patient has dense breast tissue. Dense breast tissue can make it harder to find cancer on a mammogram. Dense breast tissue is also associated with an incr eased risk of breast cancer. This information about the result of the mammogram report was provided to the patient to raise their awareness. Use this report when you speak with the patient about their risks for breast cancer, which includes their family history. At that time, you may recommend additional screening tests (Ultrasoun d or MRI) as these tests may add significant information. A negative radiographic report should not delay biopsy if a dominant or clinically suspicious mass is present. Up to ten percent of cancers are not identified on mammography. A negative report may reinforce clinical impression. Adenosis and dense breasts may obscure an underlying neoplasm. False positive reports average 6 to 10%. Patient will receive a letter notifying them of these results.
== END 2022-10-31 01:35 ==
LOC: DI 01:15
PROVIDERS: PCP Nurse Practitioner Family; Visit Provider Nurse Practitioner Family
DX: Z12.31 Encounter for screening mammogram for malignant neoplasm of breast (principal)
CPT/HCPCS: 77063; 77067

== ENCOUNTER 2023-04-11 02:44 | Outpatient (CLI) | payer BC, SELFPAY ==
[2023-04-11 16:44] LABS: Hemoglobin A1C 5.4 % (<5.7)
[2023-04-13 12:38] LABS: IgA 242 mg/dL (85-499); Interpretation (See Note); Tissue Transglutaminase IgA <1.2 U/mL (<4.0)
== END 2023-04-11 02:45 | disposition home or self-care (01) ==
PROVIDERS: PCP Nurse Practitioner Family; Visit Provider Nurse Practitioner Family
DX: K90.49 Malabsorption due to intolerance, not elsewhere classified (principal); Z98.84 Bariatric surgery status; Z13.1 Encounter for screening for diabetes mellitus
CPT/HCPCS: 36415; 82784; 83516; 83036

== ENCOUNTER 2023-09-11 12:28 | Outpatient (REF) | payer BC, SELFPAY ==
[2023-09-11 13:26] LABS: Bilirubin Negative (Negative); Blood Negative (Negative); Clarity Clear (Clear); Glucose Negative (Negative); Ketones Negative (Negative); Leukocyte Esterase Negative (Negative); Nitrite Negative (Negative); Specific Gravity 1.015 (1.005-1.025); Urobilinogen 0.2 mg/dL (Up to 0.2); pH 6.5 (5-8)
== END 2023-09-11 12:29 | disposition home or self-care (01) ==
LOC: LBN 12:28
PROVIDERS: PCP Nurse Practitioner Family; Visit Provider Nurse Practitioner Family
DX: R39.89 Other symptoms and signs involving the genitourinary system (principal); Z98.84 Bariatric surgery status
CPT/HCPCS: 81003

== ENCOUNTER 2023-09-18 11:17 | Outpatient (REF) | payer BC, SELFPAY | END 2023-09-18 11:18 | disposition home or self-care (01) | LOC: LBN 11:17 | PROVIDERS: PCP Nurse Practitioner Family; Visit Provider Nurse Practitioner Family | DX: J02.9 Acute pharyngitis, unspecified (principal) | CPT/HCPCS: 87070 ==

== ENCOUNTER → 2023-11-06 02:06 | Outpatient (CLI) | payer BC, SELFPAY ==
--- NOTE | 2023-11-06 08:30 | DI.MAMMO_ITS ---
Exam(s) MAMMO SCREENING EXAM: MAMMO SCREENING CLINICAL HISTORY: screening,Z12.39. TECHNIQUE: Bilateral full field digital CC and MLO mammographic images were obtained with 3D tomosyn thesis and utilizing computer aided detection (CAD). COMPARISON: Prior mammograms were reviewed. FINDINGS: There has been no significant change in the appearance and distribution of the fibroglandular tissue. There are no CAD designations. There are no new spiculated masses nor malignant appearing microcalcification groups. Benign intramammary lymph node in the right breast is unchanged from prior studies. There is no significant architectural distortion nor skin thickening-retraction. IMPRESSION: No radiographic evidence of malignancy. BI-RADS Category 1 - Negative Breast Density - Category A - Almost entirely fatty Breast density Category C or D implies that the patient has dense breast tissue. Dense breast tissue can make it harder to find cancer on a mammogram. Dense breast tissue is also associated with an incr eased risk of breast cancer. This information about the result of the mammogram report was provided to the patient to raise their awareness. Use this report when you speak with the patient about their risks for breast cancer, which includes their family history. At that time, you may recommend additional screening tests (Ultrasoun d or MRI) as these tests may add significant information. A negative radiographic report should not delay biopsy if a dominant or clinically suspicious mass is present. Up to ten percent of cancers are not identified on mammography. A negative report may reinforce clinical impression. Adenosis and dense breasts may obscure an underlying neoplasm. False positive reports average 6 to 10%. Patient will receive a letter notifying them of these results.
== END ==
PROVIDERS: PCP Nurse Practitioner Family; Visit Provider Nurse Practitioner Family
DX: Z12.31 Encounter for screening mammogram for malignant neoplasm of breast (principal); R92.313 Mammographic fatty tissue density, bilateral breasts
CPT/HCPCS: 77063; 77067

== ENCOUNTER → 2023-11-10 00:32 | Outpatient (CLI) | payer BC, SELFPAY ==
--- NOTE | 2023-11-10 08:00 | DI.DEXA_ITS ---
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 No compression deformities identified. Left hip: Total T-Score: 0.0 Total Z-Score: 0.4 T- and Z-scores: Within normal limits. Lumbar Spine: Total T-Score: 0.2 Total Z-Score: 0.8 T- and Z-scores: Within normal limits. IMPRESSION: No evidence of osteoporosis.
== END ==
LOC: DI 00:32
PROVIDERS: PCP Nurse Practitioner Family; Visit Provider Nurse Practitioner Family
DX: Z98.84 Bariatric surgery status (principal); Z13.820 Encounter for screening for osteoporosis
CPT/HCPCS: 77080

== ENCOUNTER 2024-07-02 14:03 | Outpatient (CLI) | payer BC, SELFPAY ==
[2024-07-02 14:55] LABS: ALT 44 U/L (14-59); AST 27 U/L (15-37); Albumin 3.7 g/dL (3.4-5.0); Alkaline Phosphatase 104 U/L (46-116); BUN 10 mg/dL (7-18); Bilirubin, Total 0.41 mg/dL (0.2-1.0); CREATININE 0.9 mg/dL (0.55-1.02); Calcium 9.3 mg/dL (8.5-10.1); Chloride 106 mmol/L (98-107); Estimated GFR 79.35 (mL/min/1.73m2); Glucose 81 mg/dL (74-106); Potassium 3.8 mmol/L (3.5-5.1); Sodium 143 mmol/L (136-145); TSH (W/Ref FT4) 3.47 uIU/mL (0.36-3.74); Total Protein 7.8 g/dL (6.4-8.2)
[2024-07-02 21:54] LABS: Lab Add On Test DONE
[2024-07-02 23:41] LABS: Calculated LDL 113 mg/dL (<100); Cholesterol 187 mg/dL (<200); HDL Cholesterol 53 mg/dL (40-60); Triglyceride 105 mg/dL (<150)
== END 2024-07-02 14:04 | disposition home or self-care (01) ==
LOC: LBO 14:04
PROVIDERS: PCP Nurse Practitioner Family; Visit Provider Nurse Practitioner Family
DX: Z00.00 Encounter for general adult medical examination without abnormal findings (principal); Z11.59 Encounter for screening for other viral diseases; E78.5 Hyperlipidemia, unspecified
CPT/HCPCS: 36415; 80053; 80061; 86704; 86706; 87340; 87389; 84443

== ENCOUNTER 2024-10-01 18:22 | Outpatient (CLI) | payer SELFPAY ==
--- NOTE | 2024-10-01 | DI.RAD_ITS ---
Exam(s) XR CHEST 2V PA LATERAL EXAM: XR CHEST 2V PA LATERAL CLINICAL HISTORY: Cough, unspecified R05.9. TECHNIQUE: 2D digital imaging was performed. COMPARISON: No exams were available for comparison FINDINGS: 2 views: Heart size is normal. The mediastinum is not widened. Left lung is clear. However, there is area of significant infiltrate in the right upper lobe. No pl eural effusions. IMPRESSION: Right upper lobe infiltrate. Radiographic follow-up to resolution is recommended. DATA REPOSITORY: RADIATION DOSE DELIVERED:
--- NOTE | 2024-10-01 19:24 | DI.VRAD_ITS ---
PROCEDURE INFORMATION: Exam: XR Chest Exam date and time: 10/01/2024 6:37 PM Age: 48 years old Clinical indication: Cough TECHNIQUE: Imaging protocol: Radiologic exam of the chest. Views: 2 views. COMPARISON: CR RIGHT SHOULDER COMPLETE 11/25/2017 1:00 PM FINDINGS: Lungs: There is a subtle small region of asymmetric hazy opacity in the upper right lung zone. Otherwise, no pulmonary consolidation is seen. Pleural spaces: No pleural effusion or pneumothorax is demonstrated. Heart/Mediastinum: The heart appears normal in size. Bones/joints: The visualized bony structures appear grossly intact. IMPRESSION: Subtle small region of asymmetric opacity in the right upper lung zone. A small region of acute pulmonary infection could have this appearance; however, the imaging appearance is nonspecific. Clinical correlation and follow-up are recommended. Dictated and Authenticated by: Dimas Lewis MD. Orderin DESTINY CAT MD
== END 2024-10-01 18:42 ==
LOC: DI 18:22
PROVIDERS: PCP Nurse Practitioner Family; Visit Provider Nurse Practitioner Family
DX: R91.8 Other nonspecific abnormal finding of lung field (principal)
CPT/HCPCS: 71046

== ENCOUNTER 2024-10-16 21:49 | Outpatient (REF) | payer OTHER, SELFPAY | END 2024-10-16 21:50 | disposition home or self-care (01) | LOC: LBN 21:49 | PROVIDERS: PCP Nurse Practitioner Family; Visit Provider Nurse Practitioner Family | DX: N76.0 Acute vaginitis (principal) | CPT/HCPCS: 87480; 87510; 87660 ==

== ENCOUNTER 2024-11-18 01:45 | Outpatient (CLI) | payer OTHER, SELFPAY ==
--- NOTE | 2024-11-18 15:08 | DI.MAMMO_ITS ---
Exam(s) MAMMO SCREENING EXAM: MAMMO SCREENING CLINICAL HISTORY: screening,z12.39 TECHNIQUE: Bilateral full field digital CC and MLO mammographic images were obtained with 3D tomosyn thesis and utilizing computer aided detection (CAD). COMPARISON: Available for comparison. FINDINGS: Masses/Architectural Distortion: No suspicious masses or areas of architectural distortion are presen t. Microcalcifications: No suspicious pleomorphic-type are seen. Skin Thickening/Nipple Retraction: None. IMPRESSION: 1. No significant interval change with no specific features of malignancy noted. 2. Unless there is more urgent need, screening mammography is recommended, as per [employer] guidelines. BI-RADS Category 1 - Negative Breast Density - Category A - Almost entirely fatty Breast density category C or D implies that the patient has dense breast tissue. Dense breast tissue is very common and is not abnormal but dense breast tissue can make it harder to find cancer on a ma mmogram. Also, dense breast tissue may increase their breast cancer risk. This information about the result of the mammogram report was provided to the patient to raise their awareness. Use this report when you speak with the patient about their risks for breast cancer, which includes their family hist ory. At that time, you may recommend for more screening tests (Ultrasound or MRI) as they might be us eful based on their risk. A negative radiographic report should not delay biopsy if a dominant or clinically suspicious mass is present. Up to ten percent of cancers are not identified on mammography. A negative report may reinforce clinical impression. Adenosis and dense breasts may obscure an underlying neoplasm. False positive reports average 6 to 10%. Patient will receive a letter notifying them of these results.
== END 2024-11-18 02:05 ==
LOC: DI 01:45
PROVIDERS: PCP Nurse Practitioner Family; Visit Provider Nurse Practitioner Family
DX: Z12.31 Encounter for screening mammogram for malignant neoplasm of breast (principal); R92.313 Mammographic fatty tissue density, bilateral breasts
CPT/HCPCS: 77063; 77067